=== PATIENT | male | born 1995 | race Caucasian/White ===

== ENCOUNTER → 2022-06-27 13:01 | Outpatient (CLI) | payer OTHER, SELFPAY ==
--- NOTE | 2022-06-27 13:05 | DI.RAD.S_ITS ---
PROCEDURE: [place] SHOULDER INJECTION MR/CT LT INDICATIONS: PAIN IN LEFT SHOULDER COMPARISON: None. TECHNIQUE: The indications, alternatives, benefits, risks, and complications of the procedure were explained to the patient. Written informed consent was obtained and placed in the chart. The shoulder was examined fluoroscopically and a site for needle placement chosen for entry into the glenohumeral joint from an anterior approach. The skin was prepped and draped in a sterile fashion, and 1% lidocaine infiltrated from skin down to joint capsule. A spinal needle was inserted into the glenohumeral joint, and a small amount of iodinated contrast media injected to confirm intra-articular placement of the needle tip. This was followed by approximately 12 mL dilute solution of a gadolinium containing MR contrast agent. The needle was removed and a dressing was applied. The patient was given postprocedural instructions and sent to the MR suite for MR imaging. FINDINGS: A single fluoroscopic spot image demonstrates intra-articular location of injected iodinated contrast. IMPRESSION: Successful fluoroscopically guided administration of dilute Gadolinium solution into the shoulder joint for MR arthrogram. Dictated by: Jed Lovett M.D. on 06/27/2022 at 14:03 Transcribed by: [email or web address] on 06/27/2022 at 14:03 Approved by: Jed Lovett M.D. on 06/27/2022 at 16:41
--- NOTE | 2022-06-27 13:06 | DI.MRI.S_ITS ---
PROCEDURE: MR SHOULDER LT W CON INDICATIONS: PAIN IN LEFT SHOULDER TECHNIQUE: After the administration of 12 mL of dilute intra-articular Gadolinium contrast, oblique coronal T1 and T2 spin echo with fat saturation, oblique sagittal T1 spin echo with and without fat saturation, oblique sagittal T2 fast spin echo with fat saturation, axial T1 spin echo with fat saturation through the shoulder. COMPARISON: [facility], , [place] SHOULDER INJECTION MR/CT LT, 06/27/2022, 13:34. FINDINGS: Image quality: Excellent. Rotator cuff: The supraspinatus, infraspinatus, and subscapularis tendons appear intact throughout. No rotator cuff muscle atrophy on sagittal images. Bones and bursae: Subtle cortical irregularity at the posterosuperior humeral head measuring 12 x 15 x 2 mm may represent a small shallow chronic Hill-Sachs lesion. There is no Ca osseous edema. No acute trabecular bone injury is seen. Postsurgical changes are seen in the posterior glenoid from prior labral repair. There is cartilage irregularity overlying the surgical site at the posterior glenoid as well as at the medial humeral head. Small marginal osteophytes are seen at the inferior humeral head. There are [id number] degenerative changes of the acromioclavicular joint. No significant subacromial/subdeltoid bursal fluid is seen. No intra-articular loose body is seen in the glenohumeral joint space. Capsule and soft tissues: The posterior labrum appears diminutive a mildly irregular with uptake of intra-articular contrast material, consistent with recurrent tearing extending from posterosuperior to posteroinferior labrum. A communicating paralabral cyst is seen posterior inferiorly measuring approximately 8 x 4 x 5 mm. Additional small 3 mm paralabral cyst is seen at the posterior glenoid. The proximal biceps long head tendon is intact. The glenohumeral ligaments are grossly intact. IMPRESSION: 1. Postsurgical changes from posterior labral repair. There is irregularity of the posterior labrum with uptake of intra-articular contrast material, consistent with recurrent nondisplaced labral tearing at the posterosuperior and posteroinferior labrum. Two small communicating paralabral cysts are seen measuring up to 8 mm and 3 mm respectively. 2. Possible small shallow nonedematous chronic Hill-Sachs lesion or impaction injury at the posterosuperior humeral head. 3. Partial-thickness cartilage loss at the posterior glenoid and medial humeral head with small marginal osteophytes. 4. 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 Dictated by: Jose Alberto Talavera M.D. on 06/27/2022 at 20:02 Approved by: Jose Alberto Talavera M.D. on 06/27/2022 at 20:13
== END ==
PROVIDERS: PCP Student in an Organized Health Care Education/Training Program; Referring Provider Student in an Organized Health Care Education/Training Program; Visit Provider Student in an Organized Health Care Education/Training Program
DX: M19.012 Primary osteoarthritis, left shoulder (principal); M25.512 Pain in left shoulder
CPT/HCPCS: 23350; 73222